=== PATIENT | female | born 1985 | race Caucasian/White ===

== ENCOUNTER 2019-05-14 10:17 | Outpatient (REF) | payer MEDICAID, SELFPAY ==
[2019-05-14 19:15] LABS: Calculated LDL 134 mg/dL; Cholesterol 199 mg/dL (<200); Glucose 109 mg/dL (74-106); HDL Cholesterol 28 mg/dL (40-60); Triglyceride 185 mg/dL (<150)
== END 2019-05-14 10:37 ==
LOC: NCHCN 10:17
PROVIDERS: PCP Nurse Practitioner Family; Visit Provider Nurse Practitioner Family
DX: Z13.220 Encounter for screening for lipoid disorders (principal); Z13.1 Encounter for screening for diabetes mellitus; Z68.42 Body mass index [BMI] 45.0-49.9, adult
CPT/HCPCS: 80061; 82947

== ENCOUNTER 2021-08-08 16:35 | Outpatient (REF) | payer MEDICAID, SELFPAY ==
[2021-08-10 13:17] LABS: COVID-19 RT-PCR UVMMC Result Negative (Negative)
== END 2021-08-08 16:36 | disposition home or self-care (01) ==
LOC: NCHCN 16:35
PROVIDERS: PCP Nurse Practitioner Family; Visit Provider Nurse Practitioner Family
DX: Z20.822 Contact with and (suspected) exposure to COVID-19 (principal); J06.9 Acute upper respiratory infection, unspecified
CPT/HCPCS: U0003

== ENCOUNTER 2021-09-20 15:30 | Outpatient (REF) | payer MEDICAID, SELFPAY ==
[2021-09-22 11:33] LABS: COVID-19 RT-PCR UVMMC Result Negative (Negative)
== END 2021-09-20 15:31 | disposition home or self-care (01) ==
LOC: NCHCN 15:30
PROVIDERS: PCP Nurse Practitioner Family; Visit Provider Nurse Practitioner Family
DX: Z20.822 Contact with and (suspected) exposure to COVID-19 (principal); R06.2 Wheezing; R05.8 Other specified cough
CPT/HCPCS: U0003

== ENCOUNTER 2022-06-25 14:58 | Outpatient (REF) | payer MEDICAID, SELFPAY ==
--- NOTE | 2022-06-25 14:00 | PAPFT_PTH ---
PATIENT: Estela Mayer LOC: [facility]#:[id number] AGE/SX: 36/F ROOM: RE06/25/[address]: Nikolas Aguirre : 1985 BED: DIS: 06/25/2022 SPEC #: [id number] RECD: 06/25/22 18:27 STATUS: JASON REQ #: [id number] JANNET: 06/25/22 14:[address]: Jackeline Aguirrelaide DEPT: [facility] Cytology RECD BY: Radha Galindo ENTERED: 06/25/22 18:28 SP TYPE: PAPFT OTHR DR: Nabila Coburn Tissues: 1 - CX/ENDOCX FOR PAP SMEARS Procedures: PAP THIN PREP/[facility] Screening HPV DNA PROBE Comments: [id number]
[2022-06-25 19:03] LABS: Anion Gap 11.1 mmol/L (3-11); BUN 13 mg/dL (7-18); CO2 23.9 mmol/L (21.0-32.0); CREATININE 0.6 mg/dL (0.55-1.02); Calcium 8.9 mg/dL (8.5-10.1); Chloride 102 mmol/L (98-107); Estimated GFR 118.49 (mL/min/1.73m2); Glucose 273 mg/dL (74-106); Potassium 3.9 mmol/L (3.5-5.1); Sodium 137 mmol/L (136-145)
[2022-06-25 19:09] LABS: Hemoglobin A1C 9.1 % (<5.7)
== END 2022-06-25 14:59 | disposition home or self-care (01) ==
LOC: NCHCN 14:58
PROVIDERS: PCP Nurse Practitioner Family; Visit Provider Nurse Practitioner Family
DX: Z13.1 Encounter for screening for diabetes mellitus (principal); Z12.4 Encounter for screening for malignant neoplasm of cervix; Z11.51 Encounter for screening for human papillomavirus (HPV); Z13.228 Encounter for screening for other metabolic disorders
CPT/HCPCS: 80048; 88142; 83036; 87624

== ENCOUNTER 2022-09-24 16:32 | Outpatient (REF) | payer MEDICAID, SELFPAY ==
[2022-09-24 19:15] LABS: ALT 33 U/L (14-59); AST 20 U/L (15-37); Albumin 3.6 g/dL (3.4-5.0); Alkaline Phosphatase 90 U/L (46-116); Anion Gap 7.3 mmol/L (3-11); BUN 12 mg/dL (7-18); Bilirubin, Total 0.3 mg/dL (0.2-1.0); CO2 26.7 mmol/L (21.0-32.0); CREATININE 0.7 mg/dL (0.55-1.02); Calcium 8.6 mg/dL (8.5-10.1); Calculated LDL 142 mg/dL (<100); Chloride 104 mmol/L (98-107); Cholesterol 203 mg/dL (<200); Estimated GFR 114.16 (mL/min/1.73m2); Glucose 89 mg/dL (74-106); HDL Cholesterol 31 mg/dL (40-60); Potassium 4.1 mmol/L (3.5-5.1); Sodium 138 mmol/L (136-145); Total Protein 7.4 g/dL (6.4-8.2); Triglyceride 150 mg/dL (<150)
[2022-09-24 19:32] LABS: COMMENT (LAB VIEW ONLY) 101.12 mg/dL
== END 2022-09-24 16:33 | disposition home or self-care (01) ==
LOC: NCHCN 16:32
PROVIDERS: PCP Nurse Practitioner Family; Visit Provider Nurse Practitioner Family
DX: E11.65 Type 2 diabetes mellitus with hyperglycemia (principal)
CPT/HCPCS: 80053; 80061; 82043; 82570

== ENCOUNTER 2023-02-07 04:08 | Outpatient (CLI) | payer MEDICAID, SELFPAY ==
[2023-02-20 09:38] LABS: Cannabidiol Negative; Carboxy-THC 7.6 ng/mL; Hydroxy-THC Negative
== END 2023-02-07 04:09 | disposition home or self-care (01) ==
PROVIDERS: PCP Nurse Practitioner Family; Visit Provider Nurse Practitioner Family
DX: Z02.83 Encounter for blood-alcohol and blood-drug test (principal)
CPT/HCPCS: 36415; 80349

== ENCOUNTER 2023-03-14 16:29 | Outpatient (REF) | payer MEDICAID, SELFPAY ==
--- OUTSIDE RECORDS SUMMARY | 2023-03-14 16:34 | XMS_ITS | Continuity of Care Document ---
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 Role Phone Almas Nabila Primary Care Physician [facility] Date(s): 03/12/23 - 03/12/[address] [address] Encounter Diagnosis Pneumonia(Discharge Diagnosis) - 03/12/23 Asthma exacerbation(Discharge Diagnosis) - 03/12/23 Discharge Disposition: Home or Self Care Attending Physician: Crystal Parham MD Admitting Physician: Crystal Parham MD Allergies, Adverse Reactions, Alerts No Known Medication Allergies Functional Status 03/12/23 Other exposure to Infectious Disease COV ID-19 Symptoms Present Medications albuterol 0 Refill(s) Start Date: 03/12/23 Status: Ordered albuterol 90 mcg/inh inhalation powder 2 puffs, Inhale, every 4 hr, PRN as needed, X 5 days, # 1 EA, 0 Refill(s), 03/17/23 8:01:00 PM [employer],Pharmacy: [id number], 170, cm, 03/12/23 19:34:00 EST, Height, 108.86, kg, 03/12/23 19:34:00 EST, Weight Dosing Start Date: 03/12/23 Stop Date: 03/17/23 Status: Ordered azithromycin 250 mg oral tablet 250 mg = 1 tab, Oral, Daily, X 4 days, # 4 tab, 0 Refill(s), 03/16/23 8:00:00 PM [employer], Pharmacy: [id number], 170, cm, 03/12/23 19:34:00 EST, Height, 108.86, kg, 03/12/23 19:34:00 EST, Weight Dosing Start Date: 03/12/23 Stop Date: 03/16/23 Status: Ordered metFORMIN 0 Refill(s) Start Date: 03/12/23 Status: Ordered predniSONE 20 mg oral tablet 40 mg = 2 tab, Oral, Daily, X 4 days, # 8 tab, 0 Refill(s), 03/16/23 8:01:00 PM [facility], Pharmacy: [facility], 170, cm, 03/12/23 19:34:00 EST, Height, 108.86, kg, 03/12/23 19:34:00 EST, WeightDosing Start Date: 03/12/23 Stop Date: 03/16/23 Status: Ordered sertraline 0 Refill(s) Start Date: 03/12/23 Status: Ordered Results Laboratory List Name Date SARS-CoV-2 (COVID-19)/Flu/RSV (GeneXpert ) (COVID-19/Flu/RSV (GeneXpert)) 03/12/23 Automated Diff 03/12/23 CBC w/ Diff 03/12/23 Comprehensive Metabolic Panel (CMP) 03/12 Procalcitonin 03/12/23 Most recent to oldest [Reference Range]: 1 WBC [5.0-10.0 x10^3/mcL] 16.2 x10^3/mcL *HI* (03/12/23 7:35 PM) RBC [4.1-5.3 x10^6/mcL] 5.3 x10^6/mcL (03/12/23 7:35 PM) Neutro Auto [40.0-75.0 %] 61.6 % (03/12/23 7:35 PM) Lymph Auto [20.0-50.0 %] 28.8 % (03/12/23 7:35 PM) [place] Auto [2.0-15.0 %] 5.6 % (03/12/23 7:35 PM) Basophil Auto [0.0-1.0 %] 0.8 % (03/12/23 7:35 PM) BUN [7-18 mg/dL] 14 mg/dL (03/12/23 7:35 PM) Glucose Level [74-106 mg/dL] 101 mg/dL (03/12/23 7:35 PM) Potassium Level [3.5-5.1 mmol/L] 3.8 mmo l/L (03/12/2335 PM) MCV [80.0-96.0 fL] 81.9 fL (03/12/2335 PM) AST [15-37 unit/L] 11 unit/L *LOW* (03/12/23 PM) ALT [14-59 unit/L] 17 unit/L (03/12/23:35 PM) MCHC [31.0-35.0 g/dL] 33.3 g/dL (03/12/2335 PM) Sodium Level [136-145 mmol/L] 138 mmol/L (03/12/2335 PM) Hct [37.0-47.0 %] 43.5 % (03/12/23 PM) Calcium Level [8.5-10.1 mg/dL] 8.9 mg/dL (03/12/2335 PM) Albumin Level [3.4-5.0 g/dL] 3.8 g/dL (03/12/2335 PM) Protein Total [6.4-8.2 g/dL] 7.6 g/dL (03/12/23:35 PM) MCH [26.0-32.0 pg] 27.3 pg (03/12/23:35 PM) Neutro Absolute 10.0 x10^3/mcL *NA* (03/12/2335 PM) Bilirubin Total [0.2-1.0 mg/dL] 0.3 mg/d L (03/12/23:35 PM) Hgb [12.0-16.0 g/dL] 14.5 g/dL (03/12/23:35 PM) Alk Phos [46-146 unit/L] 101 unit/L (03/12/23:35 PM) Platelets [130-450 x10^3/mcL] 243 x10^3/ mcL (03/12/23 7:35 PM) CO2 [21-32 mmol/L] 26 mmol/L (03/12/2335 PM) eGFR Non-AA [>=60] 119 (03/12/23 7:35 PM) eGFR AA [>=60] 119 (03/12/23 7:35 PM) Chloride Level [98-107 mmol/L] 103 mmol/ L (03/12/23 7:35 PM) Procalcitonin [0.00-0.50 ng/mL] <0.15 ng /mL (03/12/23 7:35 PM) RDW-CV [11.5-14.5 %] 14.3 % (03/12/23 7:35 PM) Imm Gran Auto [0.0-0.9 %] 0.5 % (03/12/23 7:35 PM) Slide Review Not Indicated (03/12/23 7:35 PM) Creatinine Level [0.55-1.02 mg/dL] 0.58 mg/dL (03/12/23 7:35 PM) SARS-CoV-2(Covid19)PCR(GXpert COVFLURSV) [Negative] Negative (03/12/23 8:07 PM) Flu A (GXpert COVFLURSV) [Negative] Nega tive (03/12/23 8:07 PM) RSV (GXpert COVFLURSV) [Negative] Negati ve (03/12/23 8:07 PM) Flu B (GXpert COVFLURSV) [Negative] Nega tive (03/12/23 8:07 PM) Eos, Auto [1.0-6.0 %] 2.7 % (03/12/23 7:35 PM) Vital Signs Most recent to oldest [Reference Range]: 1 2 3 Temperature Temporal Artery [36-38 Deg C] 36.2 Deg C (03/12/23 7:22 PM) Peripheral Pulse Rate [60-100 bpm] 94 bpm (03/12/23 8:36 PM) 111 bpm *HI* (03/12/23 8:14 PM) 93 bpm (03/12/23 7:58 PM) Heart Rate Monitored [60-100 bpm] 95 bpm (03/12/23 8:36 PM) 93 bpm (03/12/23 7:58 PM) 92 bpm (03/12/23 7:53 PM) Respiratory Rate [12-24 br/min] 14 br/min (03/12/23 8:36 PM) 18 br/min (03/12/23 8:14 PM) 23 br/min (03/12/23 7:58 PM) Blood Pressure [90-140/60-90 mmHg] 128/71mmHg (03/12/23 8:36 PM) 169/112mmHg *HI* (03/12/23 7:49 PM) 156/99mmHg *HI* (03/12/23 7:38 PM) Mean Arterial Pressure, Cuff [70-110 mmHg] 90 mmHg (03/12/23 8:36 PM) 131 mmHg *>HHI* (03/12/23 7:49 PM) 118 mmHg *HI* (03/12/23 7:38 PM) Weight Dosing 108.86 kg (03/12/23 7:34 PM) Weight Estimated 108.86 kg (03/12/23 7:22 PM) Height 170.000 cm (03/12/23 7:34 PM) Height/Length Estimated 170.000 cm (03/12/23 7:22 PM) Social History Social History Type Response Tobacco Never tobacco user T obacco Use:. Sex Female Hospital Discharge Instructions Patient Education 03/12/2023 20:02:39 Asthma, Adult Asthma, Adult Asthma is a long-term (chronic) condition that causes recurrent episodes in which the lower airwaysin the lungs become tight and narrow. The narrowing is caused by inflammation and tightening of thesmooth muscle around the lower airways. Asthma episodes, also called asthma attacks or asthma flares, may cause coughing, making high-pitched whistling sounds when you breathe, most often when you breathe out (wheezing), shortness of breath, and chest pain. The airways may produce extra mucus caused by the inflammation and irritation. During an attack, it can be difficult to breathe. Asthma attacks can range from minor to life-threatening. Asthma cannot be cured, but medicines and lifestyle changes can help control it and treat acute attacks. It is important to keep your asthma well controlled so the condition does not interfere with your daily life. What are the causes? This condition is believed to be caused by inherited (genetic) and environmental factors, but its exact cause is not known. What can trigger an asthma attack? Many things can bring on an asthma attack or make symptoms worse. These triggers are different for every person. Common triggers include: ??? Allergens and irritants like mold, dust, pet dander, cockroaches, pollen, air pollution, and chemical odors. ??? Cigarette smoke. ??? Weather changes and cold air. ??? Stress and strong emotional responses such as crying or laughing hard. ??? Certain medications such as aspirin or beta blockers. ??? Infections and inflammatory conditions, such as the flu, a cold, pneumonia, or inflammation of the nasal membranes (rhinitis). ??? Gastroesophageal reflux disease (GERD). What are the signs or symptoms? Symptoms may occur right after exposure to an asthma trigger or hours later and can vary by person.Common signs and symptoms include: ??? Wheezing. ??? Trouble breathing (shortness of breath). ??? Excessive nighttime or director social service coughing. ??? Chest tightness. ??? Tiredness (fatigue) with minimal activity. ??? Difficulty talking in complete sentences. ??? Poor exercise tolerance. How is this diagnosed? This condition is diagnosed based on: ??? A physical exam and your medical history. ??? Tests, which may include: ??? Lung function studies to evaluate the flow of air in your lungs. ??? Allergy tests. ??? Imaging tests, such as X-rays. How is this treated? There is no cure, but symptoms can be controlled with proper treatment. Treatment usually involves: ??? Identifying and avoiding your asthma triggers. ??? Inhaled medicines. Two types are commonly used to treat asthma, depending on severity: ??? Controller medicines. These help prevent asthma symptoms from occurring. They are taken every day. ??? Fast-acting reliever or rescue medicines. These quickly relieve asthma symptoms. They are used as needed and provide short-term relief. ??? Using other medicines, such as: ??? Allergy medicines, such as antihistamines, if your asthma attacks are triggered by allergens. ??? Immune medicines (immunomodulators). These are medicines that help control the immune system. ??? Using supplemental oxygen. This is only needed during a severe episode. ??? Creating an asthma action plan. An asthma action plan is a written plan for managing and treating your asthma attacks. This plan includes: ??? A list of your asthma triggers and how to avoid them. ??? Information about when medicines should be taken and when their dosage should be changed. ??? Instructions about using a device called a peak flow meter. A peak flow meter measures how wellthe lungs are working and the severity of your asthma. It helps you monitor your condition. Follow these instructions at home: ??? Take ztno-cyl-eklsmzu and prescription medicines only as told by your health care provider. ??? Stay up to date on all vaccinations as recommended by your healthcare provider, including vaccines for the flu and pneumonia. ??? Use a peak flow meter and keep track of your peak flow readings. ??? Understand and use your asthma action plan to address any asthma flares. ??? Do not smoke or allow anyone to smoke in your home. Contact a health care provider if: ??? You have wheezing, shortness of breath, or a cough that is not responding to medicines. ??? Your medicines are causing side effects, such as a rash, itching, swelling, or trouble breathing. ??? You need to use a reliever medicine more than 2???3 times a week. ??? Your peak flow reading is still at 50???79% of your personal best after following your action plan for 1 hour. ??? You have a fever and shortness of breath. Get help right away if: ??? You are getting worse and do not respond to treatment during an asthma attack. ??? You are short of breath when at rest or when doing very little physical activity. ??? You have difficulty eating, drinking, or talking. ??? You have chest pain or tightness. ??? You develop a fast heartbeat or palpitations. ??? You have a bluish color to your lips or fingernails. ??? You are light-headed or dizzy, or you faint. ??? Your peak flow reading is less than 50% of your personal best. ??? You feel too tired to breathe normally. These symptoms may be an emergency. Get help right away. Call 911. ??? Do not wait to see if the symptoms will go away. ??? Do not drive yourself to the hospital. Summary ??? Asthma is a long-term (chronic) condition that causes recurrent episodes in which the airways become tight and narrow. Asthma episodes, also called asthma attacks or asthma flares, can cause coughing, wheezing, shortness of breath, and chest pain. ??? Asthma cannot be cured, but medicines and lifestyle changes can help keep it well controlled and prevent asthma flares. ??? Make sure you understand how to avoid triggers and how and when to use your medicines. ??? Asthma attacks can range from minor to life-threatening. Get help right away if you have an asthma attack and do not respond to treatment with your usual rescue medicines. This information is not intended to replace advice given to you by your health care provider. Make sure you discuss any questions you have with your health care provider. Document Revised: 02/07/2022 Document Reviewed: 01/29/2022 [email or web address] Patient Education ?? 2022 [employer]. 03/12/2023 20:02:37 Community-Acquired Pneumonia, Adult Community-Acquired Pneumonia, Adult Pneumonia is a lung infection that causes inflammation and the buildup of mucus and fluids in the lungs. This may cause coughing and difficulty breathing. Community-acquired pneumonia is pneumonia that develops in people who are not, and have not recently been, in a hospital or other health care facility. Usually, pneumonia develops as a result of an illness that is caused by a virus, such as the commoncold and the flu (influenza). It can also be caused by bacteria or fungi. While the common cold andinfluenza can pass from person to person (are contagious), pneumonia itself is not considered contagious. What are the causes? This condition may be caused by: ??? Viruses. ??? Bacteria. ??? Fungi, such as molds or mushrooms. What increases the risk? The following factors may make you more likely to develop this condition: ??? Having certain medical conditions, such as: ??? A long-term (chronic) disease, which may include chronic obstructive pulmonary disease (COPD), asthma, heart failure, cystic fibrosis, diabetes, kidney disease, sickle cell disease, and human immunodeficiency virus (HIV). ??? A condition that increases the risk of breathing in (aspirating) mucus and other fluids from your mouth and nose. ??? A weakened body defense system (immune system). ??? Having had your spleen removed (splenectomy). The spleen is the organ that helps fight germs and infections. ??? Not cleaning your teeth and gums well (poor dental hygiene). ??? Using tobacco products. ??? Traveling to places where germs that cause pneumonia are present. ??? Being near certain animals, or animal habitats, that have germs that cause pneumonia. ??? Being older than 65 years of age. What are the signs or symptoms? Symptoms of this condition include: ??? A dry cough or a wet (productive) cough. ??? A fever. ??? Sweating or chills. ??? Chest pain, especially when breathing deeply or coughing. ??? Fast breathing, difficulty breathing, or shortness of breath. ??? Tiredness (fatigue). ??? Muscle aches. How is this diagnosed? This condition may be diagnosed based on your medical history or a physical exam. You may also havetests, including: ??? Chest X-rays. ??? Tests of the level of oxygen and other gases in your blood. ??? Tests of: ??? Your blood. ??? Mucus from your lungs (sputum). ??? Fluid around your lungs (pleural fluid). ??? Your urine. If your pneumonia is severe, other tests may be done to learn more about the cause. How is this treated? Treatment for this condition depends on many factors, such as the cause of your pneumonia, your medicines, and other medical conditions that you have. For most adults, pneumonia may be treated at home. In some cases, treatment must happen in a hospital and may include: ??? Medicines that are given by mouth (orally) or through an IV, including: ??? Antibiotic medicines, if bacteria caused the pneumonia. ??? Medicines that kill viruses (antiviral medicines), if a virus caused the pneumonia. ??? Oxygen therapy. Severe pneumonia, although rare, may require the following treatments: ??? Mechanical ventilation.This procedure uses a machine to help you breathe if you cannot breathe well on your own or maintain a safe level of blood oxygen. ??? Thoracentesis. This procedure removes any buildup of pleural fluid to help with breathing. Follow these instructions at home: Medicines ??? Take nqgn-qhr-[id number] and prescription medicines only as told by your health care provider. ??? Take cough medicine only if you have trouble sleeping. Cough medicine can prevent your body from removing mucus from your lungs. ??? If you were prescribed an antibiotic medicine, take it as told by your health care provider. Donot stop taking the antibiotic even if you start to feel better. Lifestyle ??? Do not drink alcohol. ??? Do not use any products that contain nicotine or tobacco, such as cigarettes, e-cigarettes, andchewing tobacco. If you need help quitting, ask your health care provider. ??? Eat a healthy diet. This includes plenty of vegetables, fruits, whole grains, low-fat dairy products, and lean protein. General instructions ??? Rest a lot and get at least 8 hours of sleep each night. ??? Sleep in a partly upright position at night. Place a few pillows under your head or sleep in a reclining chair. ??? Return to your normal activities as told by your health care provider. Ask your health care provider what activities are safe for you. ??? Drink enough fluid to keep your urine pale yellow. This helps to thin the mucus in your lungs. ??? If your throat is sore, gargle with a salt???water mixture 3???4 times a day or as needed. To make a salt???water mixture, completely dissolve ?1 tsp (3???6 g) of salt in 1 cup (237 mL) of warm water. ??? Keep all follow-up visits as told by your health care provider. This is important. How is this prevented? You can lower your risk of developing community-acquired pneumonia by: ??? Getting the pneumonia vaccine. There are different types and schedules of pneumonia vaccines. Ask your health care provider which option is best for you. Consider getting the pneumonia vaccine if: ??? You are older than 65 years of age. ??? You are 19???65 years of age and are receiving cancer treatment, have chronic lung disease, or have other medical conditions that affect your immune system. Ask your health care provider if this applies to you. ??? Getting your influenza vaccine every year. Ask your health care provider which type of vaccine is best for you. ??? Getting regular dental checkups. ??? Washing your hands often with soap and water for at least 20 seconds. If soap and water are notavailable, use hand hotel baggage handler. Contact a health care provider if you have: ??? A fever. ??? Trouble sleeping because you cannot control your cough with cough medicine. Get help right away if: ??? Your shortness of breath becomes worse. ??? Your chest pain increases. ??? Your sickness becomes worse, especially if you are an older adult or have a weak immune system. ??? You cough up blood. These symptoms may represent a serious problem that is an emergency. Do not wait to see if the symptoms will go away. Get medical help right away. Call your local emergency services (911 in the [place] Do not drive yourself to the hospital. Summary ??? Pneumonia is an infection of the lungs. ??? Community-acquired pneumonia develops in people who have not been in the hospital. It can be caused by bacteria, viruses, or fungi. ??? This condition may be treated with antibiotics or antiviral medicines. ??? Severe pneumonia may require a hospital stay and treatment to help with breathing. This information is not intended to replace advice given to you by your health care provider. Make sure you discuss any questions you have with your health care provider. Document Revised: 02/02/2020 Document Reviewed: 02/02/2020 [email or web address] Patient Education ?? 2022 [employer]. Follow Up Care 03/12/2023 19:21:55 With:Primary Care Physician Address: When:1 to 2 weeks only if needed Physician Emergency department Note * Crystal Parham MD: PERFORM Event Display: ED Note Physician Authored Date: [id number] LOVE MACE :1985 Age:37 years Sex:Female Visit Date:03/12/2023 Primary Care Physician: Nabila Coburn NP Basic Information Time Seen: Crystal Parham MD / 03/12/2023 19:27 Chief Complaint cold symptoms for about a week, but today started with some SOB getting worse throughout the day. pt vomiting on arrival, 85% on RA. pt states that cough got a lot worse today History Of Present Illness: 37-year-old lady with history of asthma,??diabetes,??depression and anxiety, presents to the emergency department complaining of shortness of breath??in the context of cough and congestion in the past week.?? Patient says??her asthma is usually well controlled, she uses a rescue inhaler occasionally only.?? In the past week she has had some congestion??and a productive cough,??as all her family members did.?? She took a COVID test which was negative.?? While her family members have improved,??she has??felt worse, especially today with increased shortness of breath.?No fevers or chills.?? No chest pain, no nausea, vomiting, constipation or diarrhea.?? No abdominal pain, no dysuria. Physical Exam Vitals & Measurements T:??36.2?C ??(Temporal Artery)?? HR:??94??(Peripheral)?? HR:??95??(Monitored)?? RR:??14?? BP:??128/71?? SpO2:??97%?? HT:??170.000??cm?? WT:??108.86??kg??(Estimated)?? Pain Score:??5?? O2 Flow Rate:??8?? O2 Therapy:??Room air?? General: A&Ox3, Calm, no apparent distress, well developed, pleasant and cooperative ?? HEENT: Head ATNC. Eyes: MARIJA. Extraocular Mobility: intact and symmetrical. Conjunctiva: non-injected, anicteric, no discharge. Oral Cavity: moist. Neck: no masses, no crepitus. Lymph Nodes: no cervical lymphadenopathy? Respiratory: CTA bilaterally, no wheezing, no rales/crackles? CV: RRR, normal S1, normal S2, no murmurs, rubs or gallops ?? Abdomen : soft, non-tender, non-distended, no rebound or guarding, no hepatosplenomegaly ?? Extremities: no le swelling, warm and well-perfused, no cyanosis, capillary refill <2 seconds? Skin: no rash, no lesions, no bruising? Neuro: normal tone, normal strength in all 4 extremities, sensation intact?? Medical Decision Makin-year-old lady with history of asthma,??diabetes,??depression and anxiety, presents to the emergency department complaining of shortness of breath??in the context of cough and congestion in the past week.?? Pt satting 85% on r/a on arrival, improved to??98%??on room air??after 3 nebs??which is when I saw her She was??speaking in full sentences??without any evidence of respiratory distress She received a half dose of Solu-Medrol??IV Labs reviewed and significant for leukocytosis,??COVID/RSV/flu negative Chest x-ray is read as no acute findings but I do see??a right lung infiltrate??so we will treat patient for??community-acquired pneumonia??in addition to asthma exacerbation Discharge instructions and return precautions discussed, all questions answered. Procedure No Qualifying Data Assessment/Plan 1.??Pneumonia??J18.9 Ordered: albuterol 90 mcg/inh inhalation powder, 2 puffs, Inhale, every 4 hr, PRN as needed, X 5 days, # 1 EA, 0 Refill(s), 03/17/23 21:01:00 EST, Pharmacy: [id number], 170, cm, 03/12/23 19:34:00 EST, Height, 108.86, kg, 03/12/23 19:34:00 EST, Weight Dosing azithromycin 250 mg oral tablet, 250 mg = 1 tab, Oral, Daily, X 4 days, # 4 tab, 0 Refill(s), 03/16/23 21:00:00 EST, Pharmacy: [id number], 170, cm, 03/12/23 19:34:00 EST, Height, 108.86, kg, 03/12/23 19:34:00 EST, Weight Dosing predniSONE 20 mg oral tablet, 40 mg = 2 tab, Oral, Daily, X 4 days, # 8 tab, 0 Refill(s), 03/16/23 21:01:00 EST, Pharmacy: [id number], 170, cm, 03/12/23 19:34:00 EST, Height, 108.86, kg, 03/12/23 19:34:00 EST, Weight Dosing Discharge Patient, 03/12/23 21:01:00 EST, Constant Indicator ?? 2.??Asthma exacerbation??J45.901 Ordered: albuterol 90 mcg/inh inhalation powder, 2 puffs, Inhale, every 4 hr, PRN as needed, X 5 days, # 1 EA, 0 Refill(s), 03/17/23 21:01:00 EST, Pharmacy: [id number], 170, cm, 03/12/23 19:34:00 EST, Height, 108.86, kg, 03/12/23 19:34:00 EST, Weight Dosing azithromycin 250 mg oral tablet, 250 mg = 1 tab, Oral, Daily, X 4 days, # 4 tab, 0 Refill(s), 03/16/23 21:00:00 EST, Pharmacy: [id number], 170, cm, 03/12/23 19:34:00 EST, Height, 108.86, kg, 03/12/23 19:34:00 EST, Weight Dosing predniSONE 20 mg oral tablet, 40 mg = 2 tab, Oral, Daily, X 4 days, # 8 tab, 0 Refill(s), 03/16/23 21:01:00 EST, Pharmacy: [id number], 170, cm, 03/12/23 19:34:00 EST, Height, 108.86, kg, 03/12/23 19:34:00 EST, Weight Dosing Discharge Patient, 03/12/23 21:01:00 EST, Constant Indicator ?? Orders: CV EKG ED, 03/12/23 19:24:00 EST, Stat, Reason: Chest Pain, Stop date and time 03/12/23 19:24:00 EST, ORD_SET_REQ_DT_RANGE, [employer] Person Id CV EKG ED, 03/12/23 19:24:00 EST, Routine, Reason: Dyspnea, Stop date and time 03/12/23 19:24:00 EST, ORD_SET_REQ_DT_RANGE, [employer] Person Id Patient Education Asthma, Adult Community-Acquired Pneumonia, Adult Follow Up With When Contact Information Primary Care Physician Within 1 to 2 weeks, only if needed Additional Instructions: Medication Reconciliation New Prescription azithromycin (azithromycin 250 mg oral tablet)1 tab Oral (given by mouth) every day for 4 Days. Refills: 0. ?? predniSONE (predniSONE 20 mg oral tablet)2 tab Oral (given by mouth) every day for 4 Days. Refills:0. ?? Changed albuterol ?? albuterol (albuterol 90 mcg/inh inhalation powder)2 Puffs Inhale (breathe in) every 4 hours as needed for 5 Days. Refills: 0. ?? Unchanged metFORMIN ?? sertraline Problem List/Past Medical History Ongoing No qualifying data Historical No qualifying data Medication Administration Given acetaminophen, 650 mg, Oral azithromycin, 500 mg, Oral. For: Pneumonia,??Asthma exacerbation ipratropium-albuterol 0.5 mg-2.5 mg/3 mL inhalation solution, 9 mL, Inhale SOLU-Medrol, 62 mg, IV Push Zofran, 4 mg, IV Push Allergies No Known Medication Allergies Social History Electronic Cigarette/Vaping Electronic Cigarette Use: Never. Tobacco Never tobacco user Tobacco Use:. Lab Results CBC and Differential?? LATEST RESULTS?? WBC?? 03/12/23 19:35?? 16.2 ??High?? RBC?? 03/12/23 19:35?? 5.3?? Hgb?? 03/12/23 19:35?? 14.5?? Hct?? 03/12/23 19:35?? 43.5?? MCV?? 03/12/23 19:35?? 81.9?? MCH?? 03/12/23 19:35?? 27.3?? MCHC?? 03/12/23 19:35?? 33.3?? RDW-CV?? 03/12/23 19:35?? 14.3?? Platelets?? 03/12/23 19:35?? 243?? Neutro Auto?? 03/12/23 19:35?? 61.6?? Lymph Auto?? 03/12/23 19:35?? 28.8?? [place] Auto?? 03/12/23 19:35?? 5.6?? Eos, Auto?? 03/12/23 19:35?? 2.7?? Basophil Auto?? 03/12/23 19:35?? 0.8?? Imm Gran Auto?? 03/12/23 19:35?? 0.5?? Neutro Absolute?? 03/12/23 19:35?? 10.0?? Slide Review?? 03/12/23 19:35?? Not Indicated? Routine Chemistry?? LATEST RESULTS?? Sodium Level?? 11/07/23 19:35?? 138?? Potassium Level?? 03/12/23 19:35?? 3.8?? Chloride Level?? 03/12/23 19:35?? 103?? CO2?? 03/12/23 19:35?? 26?? Alk Phos?? 03/12/23 19:35?? 101?? AST?? 03/12/23 19:35?? 11 ??Low?? ALT?? 03/12/23 19:35?? 17?? BUN?? 03/12/23 19:35?? 14?? Glucose Level?? 03/12/23 19:35?? 101?? Creatinine Level?? 03/12/23 19:35?? 0.58?? eGFR AA?? 03/12/23 19:35?? 119?? eGFR Non-AA?? 03/12/23 19:35?? 119?? Calcium Level?? 03/12/23 19:35?? 8.9?? Protein Total?? 03/12/23 19:35?? 7.6?? Albumin Level?? 03/12/23 19:35?? 3.8?? Bilirubin Total?? 03/12/23 19:35?? 0.3? Endocrinology?? LATEST RESULTS?? Procalcitonin?? 03/12/23 19:35?? <0.15? Infectious Disease?? LATEST RESULTS?? HISTORICAL RESULTS?? SARS-CoV-2(Covid19)PCR(GXpert COVFLURSV)?? 03/12/23 20:07?? Negative?? 03/17/22?? Negative?? Flu A (GXpert COVFLURSV)?? 03/12/23 20:07?? Negative?? 03/17/22?? Negative?? Flu B (GXpert COVFLURSV)?? 03/12/23 20:07?? Negative?? 03/17/22?? Negative?? RSV (GXpert COVFLURSV)?? 03/12/23 20:07?? Negative?? 03/17/22?? Negative? Electronically Signed on 03/12/23 09:39 PM Crystal Parham MD Emergency department Discharge instructions * Crystal Parham MD: PERFORM Event Display: ED Discharge Information Authored Date: [id number] LOVE MACE :1985 Age:37 years Sex:Female Visit Date:03/12/2023 Primary Care Physician: Nabila Coburn AIRPLANE TECHNICIAN Discharge Instructions We would like to thank you for allowing us to assist you with your healthcare needs. The following includes patient education materials and information regarding your injury/illness. Diagnosis from Today's Visit Pneumonia Asthma exacerbation Discharge Vitals Temperature??(Temporal Artery) 97.2 ??F (36.2 ??C) Heart Rate??(Peripheral) 94 Heart Rate??(Monitored) 95 Respiratory Rate?? 14 Blood Pressure?? 128/71?? Height?? 66.93 in (170.000 cm) Weight??(Estimated) 240.04 lb (108.86 kg) Allergies No Known Medication Allergies What to Do Next Instructions from Your Care Team Please continue antibiotics??and prednisone daily for 4 more days.?? Use your inhaler every 3 hours??[id number]??in the next 24 to 48 hours,??then every 6 hours??for 2 more days, then as needed.?? Take Tylenol for aches and pains.?Follow-up with your primary care doctor for reevaluation in1 to 2 weeks.?? Return to the emergency department??for any new or worsening symptoms. You Need to Schedule the Following Appointments Follow Up with??Primary Care Physician When:??Within 1 to 2 weeks, only if needed You were treated today on an emergency basis; it may be messer to contact your primary care provider to notify them of your visit today. You may have been referred to your regular doctor or a specialist, please follow up as instructed. If your condition worsens or you can't get in to see the doctor, contact the Emergency Department. Medications What How Much When Why Instructions Next Dose New azithromycin (azithromycin 250 mg oral tablet) 1 tab Oral (given by mouth) Every day Pneumonia Asthma exacerbation Duration: 4 Days Pickup at [facility] 415 New predniSONE (predniSONE 20 mg oral tablet) 2 tab Oral (given by mouth) Every day Pneumonia Asthma exacerbation Duration: 4 Days Pickup at [facility] 4156 Changed albuterol Changed albuterol (albuterol 90 mcg/ inh inhalation powder) 2 Puffs Inhale (breathe in) Every 4 hours as needed for as needed Pneumonia Asthma exacerbation Duration: 5 Days Pickup at [place] [address] Unchanged metFORMIN Unchanged sertraline Pharmacy Information [place] [address]: [address] [place] [address] [phone] Education Materials Asthma, Adult Asthma is a long-term (chronic) condition that causes recurrent episodes in which the lower airwaysin the lungs become tight and narrow. The narrowing is caused by inflammation and tightening of thesmooth muscle around the lower airways. Asthma episodes, also called asthma attacks or asthma flares, may cause coughing, making high-pitched whistling sounds when you breathe, most often when you breathe out (wheezing), shortness of breath, and chest pain. The airways may produce extra mucus caused by the inflammation and irritation. During an attack, it can be difficult to breathe. Asthma attacks can range from minor to life-threatening. Asthma cannot be cured, but medicines and lifestyle changes can help control it and treat acute attacks. It is important to keep your asthma well controlled so the condition does not interfere with your daily life. What are the causes? This condition is believed to be caused by inherited (genetic) and environmental factors, but its exact cause is not known. What can trigger an asthma attack? Many things can bring on an asthma attack or make symptoms worse. These triggers are different for every person. Common triggers include: ? Allergens and irritants like mold, dust, pet dander, cockroaches, pollen, air pollution, and chemical odors. ? Cigarette smoke. ? Weather changes and cold air. ? Stress and strong emotional responses such as crying or laughing hard. ? Certain medications such as aspirin or beta blockers. ? Infections and inflammatory conditions, such as the flu, a cold, pneumonia, or inflammation of the nasal membranes (rhinitis). ? Gastroesophageal reflux disease (GERD). What are the signs or symptoms? Symptoms may occur right after exposure to an asthma trigger or hours later and can vary by person.Common signs and symptoms include: ? Wheezing. ? Trouble breathing (shortness of breath). ? Excessive nighttime or director social service coughing. ? Chest tightness. ? Tiredness (fatigue) with minimal activity. ? Difficulty talking in complete sentences. ? Poor exercise tolerance. How is this diagnosed? This condition is diagnosed based on: ? A physical exam and your medical history. ? Tests, which may include: ? Lung function studies to evaluate the flow of air in your lungs. ? Allergy tests. ? Imaging tests, such as X-rays. How is this treated? There is no cure, but symptoms can be controlled with proper treatment. Treatment usually involves: ? Identifying and avoiding your asthma triggers. ? Inhaled medicines. Two types are commonly used to treat asthma, depending on severity: ? Controller medicines. These help prevent asthma symptoms from occurring. They are taken every day. ? Fast-acting reliever or rescue medicines. These quickly relieve asthma symptoms. They are used as needed and provide short-term relief. ? Using other medicines, such as: ? Allergy medicines, such as antihistamines, if your asthma attacks are triggered by allergens. ? Immune medicines (immunomodulators). These are medicines that help control the immune system. ? Using supplemental oxygen. This is only needed during a severe episode. ? Creating an asthma action plan. An asthma action plan is a written plan for managing and treating your asthma attacks. This plan includes: ? A list of your asthma triggers and how to avoid them. ? Information about when medicines should be taken and when their dosage should be changed. ? Instructions about using a device called a peak flow meter. A peak flow meter measures how well thelungs are working and the severity of your asthma. It helps you monitor your condition. Follow these instructions at home: ? Take itvg-ggg-lwzrvqa and prescription medicines only as told by your health care provider. ? Stay up to date on all vaccinations as recommended by your healthcare provider, including vaccines for the flu and pneumonia. ? Use a peak flow meter and keep track of your peak flow readings. ? Understand and use your asthma action plan to address any asthma flares. ? Do not smoke or allow anyone to smoke in your home. Contact a health care provider if: ? You have wheezing, shortness of breath, or a cough that is not responding to medicines. ? Your medicines are causing side effects, such as a rash, itching, swelling, or trouble breathing. ? You need to use a reliever medicine more than 2???3 times a week. ? Your peak flow reading is still at 50???79% of your personal best after following your action plan for 1 hour. ? You have a fever and shortness of breath. Get help right away if: ? You are getting worse and do not respond to treatment during an asthma attack. ? You are short of breath when at rest or when doing very little physical activity. ? You have difficulty eating, drinking, or talking. ? You have chest pain or tightness. ? You develop a fast heartbeat or palpitations. ? You have a bluish color to your lips or fingernails. ? You are light-headed or dizzy, or you faint. ? Your peak flow reading is less than 50% of your personal best. ? You feel too tired to breathe normally. These symptoms may be an emergency. Get help right away. Call 911. ? Do not wait to see if the symptoms will go away. ? Do not drive yourself to the hospital. Summary ? Asthma is a long-term (chronic) condition that causes recurrent episodes in which the airways become tight and narrow. Asthma episodes, also called asthma attacks or asthma flares, can cause coughing, wheezing, shortness of breath, and chest pain. ? Asthma cannot be cured, but medicines and lifestyle changes can help keep it well controlled and prevent asthma flares. ? Make sure you understand how to avoid triggers and how and when to use your medicines. ? Asthma attacks can range from minor to life-threatening. Get help right away if you have an asthma attack and do not respond to treatment with your usual rescue medicines. This information is not intended to replace advice given to you by your health care provider. Make sure you discuss any questions you have with your health care provider. Document Revised: 02/07/2022 Document Reviewed: 01/29/2022 [employer] Patient Education ?? 2022 [employer]. Community-Acquired Pneumonia, Adult Pneumonia is a lung infection that causes inflammation and the buildup of mucus and fluids in the lungs. This may cause coughing and difficulty breathing. Community-acquired pneumonia is pneumonia that develops in people who are not, and have not recently been, in a hospital or other health care facility. Usually, pneumonia develops as a result of an illness that is caused by a virus, such as the commoncold and the flu (influenza). It can also be caused by bacteria or fungi. While the common cold andinfluenza can pass from person to person (are contagious), pneumonia itself is not considered contagious. What are the causes? This condition may be caused by: ? Viruses. ? Bacteria. ? Fungi, such as molds or mushrooms. What increases the risk? The following factors may make you more likely to develop this condition: ? Having certain medical conditions, such as: ? A long-term (chronic) disease, which may include chronic obstructive pulmonary disease (COPD), asthma, heart failure, cystic fibrosis, diabetes, kidney disease, sickle cell disease, and human immunodeficiency virus (HIV). ? A condition that increases the risk of breathing in (aspirating) mucus and other fluids from your mouth and nose. ? A weakened body defense system (immune system). ? Having had your spleen removed (splenectomy). The spleen is the organ that helps fight germs and infections. ? Not cleaning your teeth and gums well (poor dental hygiene). ? Using tobacco products. ? Traveling to places where germs that cause pneumonia are present. ? Being near certain animals, or animal habitats, that have germs that cause pneumonia. ? Being older than 65 years of age. What are the signs or symptoms? Symptoms of this condition include: ? A dry cough or a wet (productive) cough. ? A fever. ? Sweating or chills. ? Chest pain, especially when breathing deeply or coughing. ? Fast breathing, difficulty breathing, or shortness of breath. ? Tiredness (fatigue). ? Muscle aches. How is this diagnosed? This condition may be diagnosed based on your medical history or a physical exam. You may also havetests, including: ? Chest X-rays. ? Tests of the level of oxygen and other gases in your blood. ? Tests of: ? Your blood. ? Mucus from your lungs (sputum). ? Fluid around your lungs (pleural fluid). ? Your urine. If your pneumonia is severe, other tests may be done to learn more about the cause. How is this treated? Treatment for this condition depends on many factors, such as the cause of your pneumonia, your medicines, and other medical conditions that you have. For most adults, pneumonia may be treated at home. In some cases, treatment must happen in a hospital and may include: ? Medicines that are given by mouth (orally) or through an IV, including: ? Antibiotic medicines, if bacteria caused the pneumonia. ? Medicines that kill viruses (antiviral medicines), if a virus caused the pneumonia. ? Oxygen therapy. Severe pneumonia, although rare, may require the following treatments: ? Mechanical ventilation.This procedure uses a machine to help you breathe if you cannot breathe wellon your own or maintain a safe level of blood oxygen. ? Thoracentesis. This procedure removes any buildup of pleural fluid to help with breathing. Follow these instructions at home: Medicines ? Take qrcw-[id number] and prescription medicines only as told by your health care provider. ? Take cough medicine only if you have trouble sleeping. Cough medicine can prevent your body from removing mucus from your lungs. ? If you were prescribed an antibiotic medicine, take it as told by your health care provider. Do notstop taking the antibiotic even if you start to feel better. Lifestyle ? Do not drink alcohol. ? Do not use any products that contain nicotine or tobacco, such as cigarettes, e- cigarettes, and chewing tobacco. If you need help quitting, ask your health care provider. ? Eat a healthy diet. This includes plenty of vegetables, fruits, whole grains, low-fat dairy products, and lean protein. General instructions ? Rest a lot and get at least 8 hours of sleep each night. ? Sleep in a partly upright position at night. Place a few pillows under your head or sleep in a reclining chair. ? Return to your normal activities as told by your health care provider. Ask your health care provider what activities are safe for you. ? Drink enough fluid to keep your urine pale yellow. This helps to thin the mucus in your lungs. ? If your throat is sore, gargle with a salt???water mixture 3???4 times a day or as needed. To make a salt???water mixture, completely dissolve ?1 tsp (3???6 g) of salt in 1 cup (237 mL) of warm water. ? Keep all follow-up visits as told by your health care provider. This is important. How is this prevented? You can lower your risk of developing community-acquired pneumonia by: ? Getting the pneumonia vaccine. There are different types and schedules of pneumonia vaccines. Ask your health care provider which option is best for you. Consider getting the pneumonia vaccine if: ? You are older than 65 years of age. ? You are 19???65 years of age and are receiving cancer treatment, have chronic lung disease, or haveother medical conditions that affect your immune system. Ask your health care provider if this applies to you. ? Getting your influenza vaccine every year. Ask your health care provider which type of vaccine is best for you. ? Getting regular dental checkups. ? Washing your hands often with soap and water for at least 20 seconds. If soap and water are not available, use hand hotel baggage handler. Contact a health care provider if you have: ? A fever. ? Trouble sleeping because you cannot control your cough with cough medicine. Get help right away if: ? Your shortness of breath becomes worse. ? Your chest pain increases. ? Your sickness becomes worse, especially if you are an older adult or have a weak immune system. ? You cough up blood. These symptoms may represent a serious problem that is an emergency. Do not wait to see if the symptoms will go away. Get medical help right away. Call your local emergency services (911 in the [place] Do not drive yourself to the hospital. Summary ? Pneumonia is an infection of the lungs. ? Community-acquired pneumonia develops in people who have not been in the hospital. It can be causedby bacteria, viruses, or fungi. ? This condition may be treated with antibiotics or antiviral medicines. ? Severe pneumonia may require a hospital stay and treatment to help with breathing. This information is not intended to replace advice given to you by your health care provider. Make sure you discuss any questions you have with your health care provider. Document Revised: 02/02/2020 Document Reviewed: 02/02/2020 [email or web address] Patient Education ?? 2022 [employer]. Tests Performed Medications and Immunizations Administered Given acetaminophen, 650 mg, Oral azithromycin, 500 mg, Oral. For: Pneumonia,??Asthma exacerbation ipratropium-albuterol 0.5 mg-2.5 mg/3 mL inhalation solution, 9 mL, Inhale SOLU-Medrol, 62 mg, IV Push Zofran, 4 mg, IV Push Lab Test Name Test Result Date/Time WBC 16.2 x10^3/mcL 03/12/2023 19:35 EST RBC 5.3 x10^6/mcL 03/12/2023 19:35 EST Hgb 14.5 g/dL 03/12/2023 19:35 EST Hct 43.5 % 03/12/2023 19:35 EST MCV 81.9 fL 03/12/2023 19:35 EST MCH 27.3 pg 03/12/2023 19:35 EST MCHC 33.3 g/dL 03/12/2023 19:35 EST RDW-CV 14.3 % 03/12/2023 19:35 EST Platelets 243 x10^3/mcL 03/12/2023 19:35 EST Neutro Auto 61.6 % 03/12/2023 19:35 EST Lymph Auto 28.8 % 03/12/2023 19:35 EST [place] Auto 5.6 % 03/12/2023 19:35 EST Eos, Auto 2.7 % 03/12/2023 19:35 EST Basophil Auto 0.8 % 03/12/2023 19:35 EST Imm Gran Auto 0.5 % 03/12/2023 19:35 EST Neutro Absolute 10.0 x10^3/mcL 03/12/2023 19:35 EST Slide Review Not Indicated 03/12/2023 19:35 EST Sodium Level 138 mmol/L 03/12/2023 19:35 EST Potassium Level 3.8 mmol/L 03/12/2023 19:35 EST Chloride Level 103 mmol/L 03/12/2023 19:35 EST CO2 26 mmol/L 03/12/2023 19:35 EST Alk Phos 101 unit/L 03/12/2023 19:35 EST AST 11 unit/L 03/12/2023 19:35 EST ALT 17 unit/L 03/12/2023 19:35 EST BUN 14 mg/dL 03/12/2023 19:35 EST Glucose Level 101 mg/dL 03/12/2023 19:35 EST Creatinine Level 0.58 mg/dL 03/12/2023 19:35 EST eGFR AA 119 03/12/2023 19:35 EST eGFR Non-AA 119 03/12/2023 19:35 EST Calcium Level 8.9 mg/dL 03/12/2023 19:35 EST Protein Total 7.6 g/dL 03/12/2023 19:35 EST Albumin Level 3.8 g/dL 03/12/2023 19:35 EST Bilirubin Total 0.3 mg/dL 03/12/2023 19:35 EST Procalcitonin <0.15 ng/mL 03/12/2023 19:35 EST SARS-CoV-2(Covid19)PCR(GXpert COVFLURSV) NEGATIVE 03/12/2023 20:07 EST Flu A (GXpert COVFLURSV) NEGATIVE 03/12/2023 20:07 EST Flu B (GXpert COVFLURSV) Neg-GeneXPert 03/12/2023 20:07 EST RSV (GXpert COVFLURSV) Neg-GeneXPert 03/12/2023 20:07 EST Patient/Vice President Quality Signature Patient Name:LOVE MACE I have received this information and my questions have been answered. Patient/Vice President Quality Name: Patient/Vice President Quality Signature: Relationship to Patient: Witness Name/Signature: Date: Electronically Signed on: 03/12/2023 21:04 ESTSigned by:COX MONETT Emergency department Note * Kanchan Hayward: PERFORM Event Display: ED Notes Authored Date: [id number] Patient Care team information Care Team Personnel Name: Nabila Coburn NP Position: No Access Member Role: Informed Provider Address: Address: [facility] [address] [place], [place] [address] Name: Crystal Parham MD Position: Physician Member Role: Admitting Physician Address: Address: [address] [place] [id number] Name: Sheng Lowry RN Position: Nurse Member Role: ED Nurse Care Team Related Persons Name: FRANSICO WEIR Address: Home [address] [id number]
--- OUTSIDE RECORDS SUMMARY | 2023-03-14 16:34 | XMS_ITS | Continuity of Care Document ---
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 yes *Referring??Diagnosis: Left knee pain *Therapy Diagnosis: Left patellar tendinopathy *Subjective: Everything has been going well, my knee is feeling fine. Patient Case History:??Estela returns as scheduled with reports of no significant left knee pain since our last session on 02/28/2022. She is resuming normal activities without left knee discomfort. Patient has made good progress towards functional goals since the initial evaluation. Pertinent Past Medical History: Obesity, L1 compression fracture 2018, right ankle fracture ORIF repair with limited dorsiflexion mobility. Pertinent Past Surgical History: Left ankle ORIF Clinically Complex Situations:??Obesity, left knee pain with weightbearing activities Prior Diagnostic Results: X-ray, no significant deficits note *Barriers to Education:??none Occupational Profile:?? n/a Current Occupation: Current Job Description and Requirements: Current Restrictions: Home Environment/Set Up:??Second story apartment, flight of stairs to enter *Previous Level of Function: No significant left knee pain with close chain functional activities *Current Level of Function:??No significant left knee pain with dynamic close chain functional activities. Pain: ? Mild crepitus with active range of motion, no pain noted in left knee Palpation: No significant palpable tenderness left knee region Skin Inspection: wnl Edema: No edema noted at IE Knee Joint Mobility: ROM/Strength: R AROM L AROM R PROM L PROM R Strength L Strength Knee Flex ??130 ??130 ??130 ??130 ??5 ??5 Knee Ext ??+5 ??+5 ??+5 ??+5 ??5 ??5 Upper Quadrant Screen: Gross mobility within normal limits, general trunk flexor strength 3 /5, extensor strength 3/5 Lower Quadrant Screen: Notable deficits in right ankle dorsiflexion approximately 10 degrees, all others within normal limits bilaterally Balance: Double limb static and dynamic are good, single limb left static is good, dynamic single limb left is good Spinal Screen: No significant abnormalities noted, patient does have a increased lumbar lordotic curve angle Posture Deviations/Comments: Increased lumbar lordotic curve angle, mild right trunk tilt with depressed right shoulder Gait Deviations/Comments: No abnormalities noted *Patient Education: Patient education for variable position trunk strengthening exercise with Thera-Band, squat exercise technique review, resistive squat with Thera-Band technique education. *Physical Therapy Assessment: Estela returns this week as scheduled for follow-up following approximate 4 weeks of self-management with home exercises. She reports no significant left knee pain and nosignificant imitations with close chain functional activities since her last session and has been proactive with self-management. She is completed 6 PT sessions for this episode and has met the goalsthat we established at the initial evaluation. She feels confident with dynamic movements at this time and we will discharge from physical therapy for this episode today. *Rehab Potential: Good?to reach the established goals *Functional Outcome Measure: FOM: Lower Extremity Functional Scale (LEFS) ? Score: 60% impairment at IE, 16% impairment today, associated with right ankle difficulties ? Comments: *Short Term Goals: Deferred nursing home goals *Suction Plate Carrier Cleaner Goals: To be met in 6 weeks 1. Patient be able to transition from sit to stand with no left knee pain, met 2. Patient will be able to ambulate negotiate stairs with reciprocal gait with no left knee pain, met 3. Patient will have no significant left knee pain with static positions/driving, met 4. Patient will be independent with lower extremity home exercise program to maximize strength and stability in left limb., met *Discharge Plan: DC PT today *Procedure Documentation: CPT 64628: Therapeutic Exercise:??20? minutes Therapeutic exercise to promote improved joint stability, strength, endurance, and range of motion for functional ADL???s such as: walking, stair negotiation Specific education/training provided: education for variable position trunk strengthening exercise with Thera-Band, squat exercise technique review, resistive squat with Thera-Band technique education. HEP review *Total Time: 25 *Time In: 1005 *Time Out: 1030 This document was dictated utilizing voice recognition software and may contain inadvertent errors. Electronically Signed on 03/21/22 10:35 AM Charli Smith PT * Charli Smith: PERFORM Event Display: Physical Therapy Progress Note Authored Date: *Referring??Diagnosis: Left knee pain *Therapy Diagnosis: Left patellar tendinopathy *Subjective: Everything is going well, my knee is feeling good and not having had pain with activities. Patient??Case History: Estela has been seen 5 times since initial evaluation with reports of improved knee strength and confidence with close chain activities. Pain:?Left patellar region crepitus *Objective Measures and Interventions: strength: L knee extension/flexion/4/5 Balance : L single limb stand good CPT 76078: Therapeutic Exercise:?25 minutes Therapeutic exercise to promote improved joint stability, strength, endurance, and range of motion for functional ADL???s such as: standing, walking Specific education/training provided: Patient education for graded repetition increased with close chain exercises Squat exercise technique review Reverse lunge exercise technique education Static standing balance home exercise program review *Patient Education: ??see above *Physical Therapy Assessment: Estela returns this week with reports of continued gains in general strength and confidence with her left lower extremity activities. She states stairs continue to becomemore confident with no significant pain when she is ambulating up and down carrying only light weights. She does notice with heavier loads there is continued patella tendon discomfort with descendingstairs, I anticipate this will alleviate as her strength improves. We finalize her home exercise program today and she will continue to focus on close chain loading to maximize patella tendon durability and tolerance to functional activities. We discussed plan of care, we will hold physical therapyfor 3 weeks as she continues with current home exercise program with graded increase in repetitionson a weekly basis. I anticipate continued gains with functional activities and reduction of pain with stair and eccentric loading of left limb. *Plan: ?? cont per plan *Total Time: 25 min *Time In: 1040 *Time Out: 1105 This document was dictated utilizing voice recognition software and may contain inadvertent errors. Electronically Signed on 02/28/22 11:12 AM Charli Smith * Charli Smith: PERFORM, MODIFY, MODIFY Event Display: Physical Therapy Progress Note Authored Date: [id number] *Referring??Diagnosis: Left knee pain *Therapy Diagnosis: Left patellar tendinopathy *Subjective: My knee is feeling quite good, able to do most things now without pain. Patient??Case History: Estela returns with reports of continued gains in functional activities with no significant pain with close chain movements. Continues to have crepitus but no significant pain in left patella tendon region. Pain:?Left patellar region crepitus *Objective Measures and Interventions: strength: L knee extension/flexion/4/5 Balance : L single limb stand good CPT 27730: Therapeutic Exercise:?30 minutes Therapeutic exercise to promote improved joint stability, strength, endurance, and range of motion for functional ADL???s such as: standing, walking Specific education/training provided: Squat exercise technique education, parameters for strengthening protocol Single limb squat exercise education Modified lunge exercise education Prone knee flexion/hip rotation mobility exercise Quadricep stretch technique review Home exercise program education/modification. Patient education for body weight strengthening program parameter *Patient Education: ??see above *Physical Therapy Assessment: Estela returns with reports of no significant pain with close chain activities and continues to be proactive with home exercises. We were able to increase dynamic load today with therapeutic exercise to begin strengthening protocol and enhance durability of quadriceps tendon. She had notable crepitus with close chain flexion movements but no significant pain and will benefit from variable loading to maximize strength and durability for reduction of potential tendinopathy with ADL movements. *Plan: ?? cont per plan *Total Time: 32 min *Time In: 0900 *Time Out: 09 This document was dictated utilizing voice recognition software and may contain inadvertent errors. Electronically Signed on 02/22/22 09:32 AM Charli Smith Patient Care team information Personnel Name: Nabila Coburn NP Address: Address: [id number] [place] [address]
--- OUTSIDE RECORDS SUMMARY | 2023-03-14 16:34 | XMS_ITS | Continuity of Care Document ---
Author Name Unknown Organization [facility] Address [address] [place] [address] Care Team Providers Care Bowl Turner Name Role Phone Nabila Coburn Primary Care Physician [phone] Encounter [facility] Date(s): 03/17/22 - 03/17/[address] [address] Discharge Disposition: Home or Self Care Attending Physician: Evelyn Aguirre LGSW Admitting Physician: Evelyn Aguirre NP Referring Physician: Evelyn Aguirre LGSW Allergies, Adverse Reactions, Alerts No Known Medication Allergies Assessment and Plan Future Appointments Results Laboratory List Name Date SARS-CoV-2 (COVID-19)/Flu/RSV ([facility] ) 03/17/22 Most recent to oldest [Reference Range]: 1 Employed in healthcare? No *NA* (03/17/22 12:09 PM) Symptomatic as defined by CDC? Yes *NA* (03/17/22 12:09 PM) Hospitalized due to COVID-19? No *NA* (03/17/22 12:09 PM) In ICU? No *NA* (03/17/22 12:09 PM) Group care resident? No *NA* (03/17/22 12:09 PM) status? Not *NA* (03/17/22 12:09 PM) SARS-CoV-2(Covid19)PCR([facility] COVFLURSV) [Negative] Negative (03/17/22 12:09 PM) Flu A ([facility] COVFLURSV) [Negative] Nega tive (03/17/22 12:09 PM) RSV ([facility] COVFLURSV) [Negative] Negati ve (03/17/22 12:09 PM) Flu B ([facility] COVFLURSV) [Negative] Nega tive (03/17/22 12:09 PM) Social History Social History Type Response Sex Female Patient Care team information Care Team Personnel Name: Nabila Coburn LGSW Position: No Access Member Role: Primary Care Physician Address: Address: [address] [address]- Care Team Related Persons Name: FRANSICO WEIR Address: Home [address] [id number]
[2023-03-14 19:55] LABS: ESR 28 mm/hr (0-20)
[2023-03-14 20:16] LABS: C-Reactive Protein 1.92 mg/dL (0.0-0.3)
[2023-03-14 20:27] LABS: D-Dimer 505 ng/mlFEU (<500)
== END 2023-03-14 16:30 | disposition home or self-care (01) ==
LOC: NCHCN 16:29
PROVIDERS: PCP Nurse Practitioner Family; Visit Provider Physician Assistant
DX: R06.02 Shortness of breath (principal)
CPT/HCPCS: 85652; 85379; 86140

== ENCOUNTER 2023-06-25 19:36 | Outpatient (REF) | payer MEDICAID, SELFPAY ==
[2023-06-25 19:56] LABS: Anion Gap 9.6 mmol/L (3-11); BUN 11 mg/dL (7-18); CO2 27.4 mmol/L (21.0-32.0); CREATININE 0.6 mg/dL (0.55-1.02); Chloride 104 mmol/L (98-107); Estimated GFR 117.75 (mL/min/1.73m2); Glucose 112 mg/dL (74-106); Potassium 4.4 mmol/L (3.5-5.1); Sodium 141 mmol/L (136-145)
[2023-06-25 20:03] LABS: Hemoglobin A1C 5.6 % (<5.7)
== END 2023-06-25 19:37 | disposition home or self-care (01) ==
LOC: NCHCN 19:36
PROVIDERS: PCP Nurse Practitioner Family; Visit Provider Nurse Practitioner Family
DX: E11.65 Type 2 diabetes mellitus with hyperglycemia (principal)
CPT/HCPCS: 80048; 83036

== ENCOUNTER 2024-07-29 14:10 | Outpatient (REF) | payer MEDICAID, SELFPAY ==
[2024-07-29 20:07] LABS: ALT 22 U/L (14-59); AST 15 U/L (15-37); Albumin 3.7 g/dL (3.4-5.0); Alkaline Phosphatase 89 U/L (46-116); Anion Gap 5.2 mmol/L (3-11); BUN 9 mg/dL (7-18); Bilirubin, Total 0.4 mg/dL (0.2-1.0); CO2 29.8 mmol/L (21.0-32.0); CREATININE 0.7 mg/dL (0.55-1.02); Calculated LDL 113 mg/dL (<100); Chloride 106 mmol/L (98-107); Cholesterol 183 mg/dL (<200); Estimated GFR 112.75 (mL/min/1.73m2); Glucose 88 mg/dL (74-106); HDL Cholesterol 44 mg/dL (>or=50); Potassium 4.6 mmol/L (3.5-5.1); Sodium 141 mmol/L (136-145); Total Protein 7.1 g/dL (6.4-8.2); Triglyceride 133 mg/dL (<150)
== END 2024-07-29 14:11 | disposition home or self-care (01) ==
LOC: NCHCN 14:10
PROVIDERS: PCP Nurse Practitioner Family; Visit Provider Nurse Practitioner Family
DX: E78.5 Hyperlipidemia, unspecified (principal); E11.65 Type 2 diabetes mellitus with hyperglycemia
CPT/HCPCS: 80053; 80061